=== PATIENT | male | born 1965 | race Two or more races ===

== ENCOUNTER 2022-02-05 18:12 | Emergency (ER) | payer OTHER ==
[~2022-02-05] VITALS: Ht 170.2 cm; Wt 86.2 kg
--- NOTE | 2022-02-05 18:20 | NUR ---
SENT HERE BY PMD FOR FURTHER MANAGEMENT OF LEFT LEG DVT. AMBULATORY, AAOX4, NO PAIN AT LEFT LEG VERBALIZED BY THE PATIENT.
--- NOTE | 2022-02-05 18:33 | NUR ---
AT BED SIDE
--- NOTE | 2022-02-05 18:34 | NUR ---
CALLED DR. GIBSON [phone] TO CALL US BACK.
--- NOTE | 2022-02-05 18:37 | NUR ---
DR. GIBSON SPEAKING WITH DR. GRAVES.
--- NOTE | 2022-02-05 18:40 | NUR ---
TIRE MAN AT BED SIDE FOR BLOOD WORKS
--- NOTE | 2022-02-05 19:12 | NUR ---
GONZÁLEZ MCGHEE AT BED SIDE
[2022-02-05 19:26] LABS: CALCIUM, SERUM 8.7 mg/dL (8.5-10.1); POTASSIUM 3.8 mmol/L (3.5-5.1)
[2022-02-05 19:55] LABS: BASOPHILS % (AUTO) 0.3 % (0.0-2.0); EOSINOPHILS % (AUTO) 1.6 % (0.0-6.0); HEMATOCRIT 43 % (39-51); HEMOGLOBIN 14.9 g/dL (13.5-17.5); LYMPHOCYTES # (AUTO) 1.6 K/uL (0.8-4.8); LYMPHOCYTES % (AUTO) 25.5 % (20.0-44.0); MEAN CORPUSCULAR HGB CONC 34 g/dl (31.0-36.0); MEAN CORPUSCULAR VOLUME 89 fL (80-96); MONOCYTES # (AUTO) 0.5 K/uL (0.1-1.30); MONOCYTES % (AUTO) 8.2 % (2.0-12.0); NEUTROPHILS # (AUTO) 4.1 K/uL (1.8-8.9); NEUTROPHILS % (AUTO) 64.4 % (43.0-81.0); PLATELET COUNT (AUTO) 192 K/uL (150-450); RED BLOOD CELL COUNT(AUTO) 4.85 MIL/uL (4.5-6.0); WHITE BLOOD COUNT (AUTO) 6.3 K/uL (4.3-11.0)
[2022-02-05] MEDS ORDERED: APIX5TAB PO (20:58)
--- NOTE | 2022-02-05 21:32 | NUR ---
Patient discharged to home in stable condition. Written and verbal after care instructions given. Patient verbalizes understanding of instruction.
[2022-02-05 21:38] VITALS: BP 142/82
== END 2022-02-05 21:40 | disposition home or self-care (01) ==
LOC: ER 18:20
DX: I82.432 Acute embolism and thrombosis of left popliteal vein (principal); I10 Essential (primary) hypertension; E78.5 Hyperlipidemia, unspecified
CPT/HCPCS: 36415; 80048-TC; 85025-TC; 85730-TC; 93971-TC

== ENCOUNTER 2022-02-13 17:49 | Inpatient (IN) | payer OTHER ==
[~2022-02-13] VITALS: Ht 167.6 cm; Wt 88.5 kg
[~2022-02-13 17:49] MED LIST: APIX5TAB PO
--- NOTE | 2022-02-13 18:45 | NUR ---
Patient came in to the er sent by PMD for abnormal CT. On room air, breathing evenly and unlabored. Connected to the monitor and pulse ox. kept comfortable, will continue to monitor accordingly.
[2022-02-13] MEDS ORDERED: IV NS 0.9% 250 ML IV ONE (18:49)
[2022-02-13] MEDS ORDERED: IOHEXOL-350 100 ML VIAL IV ONE (18:49)
--- NOTE | 2022-02-13 18:54 | NUR ---
blood collected and sent to lab.
[2022-02-13 19:15] LABS: CARBON DIOXIDE 25 mmol/L (21-32); CHLORIDE 108 mmol/L (98-107); CREATININE 1.3 mg/dL (0.6-1.3); GLUCOSE 134 mg/dL (74-106); POTASSIUM 3.9 mmol/L (3.5-5.1); SODIUM SERUM 141 mmol/L (136-145); UREA NITROGEN, BLOOD 24 mg/dL (7-18)
--- NOTE | 2022-02-13 19:33 | NUR ---
Dr Starks paged per dr Chen.
--- NOTE | 2022-02-13 19:34 | NUR ---
COVID SWAB COLLECTED AND SENT TO LAB
[2022-02-13 20:15] LABS: BASOPHILS % (AUTO) 0.4 % (0.0-2.0); EOSINOPHILS % (AUTO) 1.4 % (0.0-6.0); HEMATOCRIT 48 % (39-51); HEMOGLOBIN 16.4 g/dL (13.5-17.5); LYMPHOCYTES # (AUTO) 2.2 K/uL (0.8-4.8); LYMPHOCYTES % (AUTO) 30.4 % (20.0-44.0); MEAN CORPUSCULAR HGB CONC 34 g/dl (31.0-36.0); MEAN CORPUSCULAR VOLUME 90 fL (80-96); MONOCYTES # (AUTO) 0.7 K/uL (0.1-1.30); MONOCYTES % (AUTO) 9.2 % (2.0-12.0); NEUTROPHILS # (AUTO) 4.2 K/uL (1.8-8.9); NEUTROPHILS % (AUTO) 58.6 % (43.0-81.0); PLATELET COUNT (AUTO) 218 K/uL (150-450); RED BLOOD CELL COUNT(AUTO) 5.31 MIL/uL (4.5-6.0); WHITE BLOOD COUNT (AUTO) 7.1 K/uL (4.3-11.0)
[2022-02-13] MEDS ORDERED: HEPARIN INFUSION/D5W 500 ML IV PRN (20:30)
[2022-02-13] MEDS ORDERED: ATOR10TA PO (20:36)
[2022-02-13] MEDS ORDERED: EMPA10TA PO (20:36)
[2022-02-13] MEDS ORDERED: OLME20TA13 PO (20:36)
--- NOTE | 2022-02-13 20:51 | NUR ---
PATIENT RE-WEIGHED VIA BED SCALE. 194.3LBS/88.3 KG.PT VERIFIED ACCURATE WEIGHT.
--- NOTE | 2022-02-13 21:25 | NUR ---
DR. JOHN ORDERED FOR PT TO BE NPO UNTIL FURTHER ORDERS; ORDERS NOT ABLE TO BE PUT IN. WILL ENDORSE TO NEXT RN.
--- NOTE | 2022-02-13 21:30 | NUR ---
ADMISSION ORDER RCVD FROM DR ELAM.
[2022-02-13] MEDS ORDERED: HEPARIN INFUSION/D5W 500 ML IV ONE (21:42)
--- NOTE | 2022-02-13 21:57 | NUR ---
HEPARIN INITIATED AT 18UNITS/88.3KG/HR PER HEPARIN INFUSION PROTOCOL. STARTING DOSE 1600UNITS/HR. NO BOLUS PER MD LAW. PT/INR AND PTT WNL AND NO OBVIOUS SIGNS OF BLEEDING NOTED.
[2022-02-13] MEDS ORDERED: IV 1/2NS 1000 ML 1,000 ML IV PRN (22:30)
[2022-02-13] MEDS ORDERED: ZOLPIDEM TARTRATE 5 MG TABLET PO PRN (22:30)
[2022-02-13] MEDS ORDERED: ACETAMINOPHEN 325 MG TABLET PO PRN (22:30)
--- NOTE | 2022-02-13 23:00 | NUR ---
JESSICA 116
--- NOTE | 2022-02-13 23:04 | NUR ---
RN NOTES RECEIVED ER ADMISSION REPORT FROM MODESTA REES. ALL PERTINENT ADMISSION INFO REGARDING PT NOTED. WILL WAIT FOR PT TO BE TRANSFERRED TO UNIT AND ADDRESS NEEDS ACCORDINGLY. AUTOMOTIVE DRIVABILITY TECHNICIAN MADE AWARE.
--- NOTE | 2022-02-13 23:06 | NUR ---
REPORT GIVENT TO MODESTA JONES
[2022-02-14] VITALS: BP 136/81
--- NOTE | 2022-02-14 | NUR ---
RN NOTES RECEIVED PT FROM ER VIA GURNEY ACCOMPANIED BY 1 ER STAFF AND TRANSFERRED TO BED INDEPENDENTLY. PT IS A/OX4;ON ROOM AIR WITH RESPIRATIONS EVEN AND UNLABORED. COMPREHENSIVE PHYSICAL ASSESSMENT AND PATIENT CARE DONE. CALL LIGHT WITHIN REACH, SAFETY MEASURES AND ISOLATION PRECAUTION IN PLACE, WILL CONTINUE MONITOR AND ASSESS THROUGHOUT THE SHIFT. WILL CARRY OUT MD ORDERS ACCORDINGLY. JUICE PACKAGING MACHINES SETTER MADE AWARE.
--- NOTE | 2022-02-14 00:07 | NUR ---
PT TRANSPORTED TO ROOM 116 ON AEROSOL LINE OPERATOR PER ACLS PROTOCOL. HEPARIN INFUSING AT 1600 UNITS/HR. ALL V/S WNL.
[2022-02-14] MEDS ORDERED: INSULIN REGULAR, HUMAN 100 UNIT/ML 3 ML VIAL SQ PRN (01:30)
[2022-02-14] MEDS ORDERED: *INSULIN REGULAR(HUMULIN R)HUM 100 UNIT/ML VIAL SQ PRN (01:30)
[2022-02-14] MEDS ORDERED: DEXTROSE 50%-WATER 50 ML DISP.SYRIN IV PRN (01:30)
[2022-02-14 04:00] VITALS: BP 125/80
--- NOTE | 2022-02-14 04:00 | NUR ---
RN NOTES NO NOTED CHANGES IN PATIENT CONDITION AT THIS TIME; PATIENT VITALS STABLE, NO SIGNS OF ACUTE RESPIRATORY DISTRESS. AM PATIENT CARE RENDERED.WILL CONTINUE TO MONITOR AND REASSESS FOR ANY CHANGES THROUGHOUT THE SHIFT.
[2022-02-14 04:02] LABS: BASOPHILS % (AUTO) 0.6 % (0.0-2.0); EOSINOPHILS % (AUTO) 2.2 % (0.0-6.0); HEMATOCRIT 45 % (39-51); HEMOGLOBIN 15.2 g/dL (13.5-17.5); LYMPHOCYTES # (AUTO) 2.1 K/uL (0.8-4.8); LYMPHOCYTES % (AUTO) 35.5 % (20.0-44.0); MEAN CORPUSCULAR HGB CONC 34 g/dl (31.0-36.0); MEAN CORPUSCULAR VOLUME 90 fL (80-96); MONOCYTES # (AUTO) 0.5 K/uL (0.1-1.30); NEUTROPHILS # (AUTO) 3.2 K/uL (1.8-8.9); NEUTROPHILS % (AUTO) 53.7 % (43.0-81.0); PLATELET COUNT (AUTO) 181 K/uL (150-450); RED BLOOD CELL COUNT(AUTO) 4.96 MIL/uL (4.5-6.0)
[2022-02-14 04:18] LABS: CALCIUM, SERUM 7.9 mg/dL (8.5-10.1); POTASSIUM 3.9 mmol/L (3.5-5.1)
--- NOTE | 2022-02-14 05:00 | NUR ---
RN NOTES COAGULATION LAB RESULT CAME OUT: PT: 11.2, INR:1.07 PTT: 51.0, FOLLOWING THE HEPARIN PROTOCOL FOR NON ACS CRITERIA D. 46-70; NO CHANGE. WILL CONTINUE DOSE RATE: 1600 U/HR THEN REPEAT PTT AFTER 24HRS. SCHEDULE CHECKER MADE AWARE.
--- NOTE | 2022-02-14 06:38 | NUR ---
RN CLOSING NOTE: PATIENT REMAINS IN ROOM IN NO SIGNS OF RESPIRATORY DISTRESS, PATIENT STILL ON ROOM AIR;TOLERATING WELL SATURATING @ >95% SP02. WITH ONGOING HEPRIN DRIP PER NON ACS PROTOCOL;CURRENTLY RUNNING AT DOSE RATE OF 1600U/HR. SAFETY MEASURES IMPLEMENTED, BED IN LOWEST POSITION, LOCKED, SIDE RAILS UP, CALL LIGHT WITHIN REACH. ALL NEEDS AND ORDERS ADDRESSED DURING THE SHIFT. IV ACCESS MAINTAINED INTACT, SECURED AND FLUSHING WELL. ALL DUE MEDS GIVEN ORDERED & SCHEDULED ; PATIENT TOLERATED WELL. PATIENT KEPT CLEAN AND COMFORTABLE WITHIN THE SHIFT. PATIENT ENDORSED TO INCOMING SHIFT RN WITH STABLE VITAL SIGN AND FOR CONTINUITY OF CARE.
--- NOTE | 2022-02-14 07:15 | NUR ---
RN NOTES RECEIVED PT ON BED, A/Ox4, ON RA, NO RESPIRATORY DISTRESS NOTED, ON TELE SR HR IN 60'S , PT IN NPO THIS AM , PT ON HEPARIN DRIP AT 1600 U/HR , NO COMPLICATION NOTED, IVF AT 75CC/HR RUNNING , SR UP x3, CALL LIGHT WITHIN EASY REACH, BED LOCKED AND IN LOWEST POSITION , CONTINUE TO MONITOR.
[2022-02-14] MEDS ORDERED: BLOOD SUGAR DIAGNOSTIC 1 EACH STRIP VI SCH (07:30)
[2022-02-14 08:00] VITALS: BP 123/75
[2022-02-14] MEDS ORDERED: APIXABAN 5 MG TABLET PO SCH (09:00)
[2022-02-14] MEDS ORDERED: Medication Not On Formulary EA (Empagliflozin (Jardiance) 10 MG) PO SCH (09:00)
--- NOTE | 2022-02-14 10:00 | NUR ---
RN NOTES REPORT GIVEN TO JAKOB BYERS FOR CONTINUITY OF CARE .
[2022-02-14] MEDS ORDERED: APIX5TAB PO (10:50)
--- NOTE | 2022-02-14 11:30 | NUR ---
COLOR TECHNICIAN NOTE PT STABLE FOR DISCHARGE PER MD ORDER. PT A/Ox4, ON RA, NO RESPIRATORY DISTRESS NOTED, ON TELE SR HR IN 60'S. PT PIV REMOVED FULLY INTACT WITH NO BLEEDING NOTED. PT VERBALLY CONFIRMED UNDERSTANDING OF DC ORDER AND PLAN OF CARE. PT ARRANGED TRANSPORTATION WITH FAMILY MEMBER. PT TO BE DISCHARGED HOME PER REQUEST. PT STABLE AT TIME OF DISCHARGE.
[2022-02-14] MEDS ORDERED: ATORVASTATIN 10 MG TABLET PO SCH (18:00)
[2022-02-14] MEDS ORDERED: LOSARTAN POTASSIUM 50 MG TABLET PO SCH (18:00)
== END 2022-02-14 11:23 | disposition home health service (06) | DRG 176 ==
LOC: ER 17:58 → TELE-TD 23:52
PROVIDERS: ADMIT Internal Medicine; ATTEND Internal Medicine
DX: I26.99 Other pulmonary embolism without acute cor pulmonale (principal); I82.432 Acute embolism and thrombosis of left popliteal vein; E11.9 Type 2 diabetes mellitus without complications; I10 Essential (primary) hypertension; Z79.01 Long term (current) use of anticoagulants; Z20.822 Contact with and (suspected) exposure to COVID-19; E78.5 Hyperlipidemia, unspecified; Z79.899 Other long term (current) drug therapy; Z79.84 Long term (current) use of oral hypoglycemic drugs; Z87.828 Personal history of other (healed) physical injury and trauma
CPT/HCPCS: 36415; 80048-TC; 82962-TC; 83880; 84484-TC; 85025-TC; 85378-TC; 85610-TC; 85730-TC; 87081-TC; C9803; G0378; J1644; J1815; J3490; J7050; Q9967